=== PATIENT | male | born 1950 | race Caucasian/White ===

== ENCOUNTER → 2021-04-26 | Outpatient (CLI) | payer MEDICARE | END | disposition home or self-care (01) | LOC: LAB 07:56 → LAB SHORT 07:56 | DX: C44.219 Basal cell carcinoma of skin of left ear and external auricular canal (principal) | CPT/HCPCS: 88305 ==

== ENCOUNTER → 2023-09-13 | Outpatient (CLI) | payer MEDICARE, OTHER | END | disposition home or self-care (01) | LOC: LAB 15:10 → LAB SHORT 15:10 | DX: N39.0 Urinary tract infection, site not specified (principal) | CPT/HCPCS: 87077; 87086; 87186 ==